=== PATIENT | female | born 1950 | race African-American/Black ===

== ENCOUNTER 2017-02-26 09:12 | Outpatient (CLI) | payer OTHER ==
--- NOTE | 2017-02-26 14:16 | Mammography Report ---
BILATERAL DIGITAL SCREENING MAMMOGRAM with CAD: 02/26/17 09:12:00 CLINICAL: Routine screening. COMPARISON:06/26/15 and 04/08/10 FINDINGS: The breasts are heterogeneously dense, which may obscure small masses. No mass, architectural distortion or suspicious calcifications. IMPRESSION: No mammographic evidence of malignancy. BI-RADS CATEGORY: 1 - - Negative RECOMMENDATION: Routine mammographic screening in one year. COMMENT: Patient follow-up letters are generated by our [employer] application.
== END 2017-02-26 09:13 | disposition home or self-care (01) ==
LOC: MAMMO 09:12
PROVIDERS: ATTEND Family Medicine
DX: Z12.31 Encounter for screening mammogram for malignant neoplasm of breast (principal)
CPT/HCPCS: 77067; G0202